=== PATIENT | male | born 1980 | race Caucasian/White ===

== ENCOUNTER 2016-07-20 09:30 | Emergency (ER) | payer OTHER ==
[2016-07-20 09:43] VITALS: BP 137/87
--- NOTE | 2016-07-20 10:00 | ER Document Report ---
ED Respiratory Problem - General Mode of Arrival: Ambulatory Information source: Patient TRAVEL OUTSIDE OF THE [place] IN LAST 30 DAYS: No - HPI Onset: Last week Duration: Worse/persistent Quality of pain: Sharp - reproducible Similar symptoms previously: No <MENDY PENG - Last Filed: 07/20/16 10:53> <SAE NGUYEN - Last Filed: 07/20/16 13:02> - General Chief Complaint: Upper Abdominal Pain Stated Complaint: RIGHT FLANK PAIN Time Seen by Provider: 07/20/16 09:56 Notes: Patient is 36 year old male that presents to the emergency department today with complaints of right sided chest wall pain. Patient reports the pain is reproducible with coughs, sneezes, and palpation of the right chest wall. Patient states his pain initially began 7 days ago and it felt like a "gas bubble". Patient does have an extensive 20 year smoking history. Patient denies any vomiting, diarrhea, cough, sputum, trauma to the area, radiation of pain to his back, or lightheadedness. (MENDY PENG) - Related Data Allergies/Adverse Reactions: No Known Allergies Allergy (Verified 07/20/16 09:34) Past Medical History - General Information source: Patient - Social History Smoking Status: Current Every Day Smoker Cigarette use (# per day): Yes Frequency of alcohol use: Rare Drug Abuse: None Lives with: Family Family History: Reviewed & Not Pertinent Patient has suicidal ideation: No Patient has homicidal ideation: No - Past Medical History Cardiac Medical History: Reports: Hx Hypercholesterolemia Surgical Hx: Negative - Immunizations Hx Diphtheria, Pertussis, Tetanus Vaccination: No <MENDY PENG - Last Filed: 07/20/16 10:53> Review of Systems - Review of Systems Constitutional: No symptoms reported EENT: No symptoms reported Cardiovascular: denies: Lightheaded Respiratory: denies: Cough, Sputum Gastrointestinal: See HPI, Abdominal pain - RUQ Genitourinary: No symptoms reported Male Genitourinary: No symptoms reported Musculoskeletal: No symptoms reported Skin: No symptoms reported Hematologic/Lymphatic: No symptoms reported Neurological/Psychological: No symptoms reported -: Yes All other systems reviewed and negative <MENDY PENG - Last Filed: 07/20/16 10:53> Physical Exam - Respiratory Respiratory status: No respiratory distress Chest status: Tender - right lower anterior rib tenderness with palpation, reproducible pain - Cardiovascular Rhythm: Regular Heart sounds: Normal auscultation Murmur: No - Abdominal Inspection: Normal Distension: No distension - Extremities General upper extremity: Normal inspection. No: Tender General lower extremity: Normal inspection. No: Tender - Neurological Neuro grossly intact: Yes Cognition: Normal Orientation: AAOx4 Speech: Normal - Psychological Associated symptoms: Normal affect, Normal mood - Skin Skin Temperature: Warm Skin Moisture: Dry Skin Color: Normal <MENDY PENG - Last Filed: 07/20/16 10:53> - Abdominal Tenderness: Nontender Organomegaly: No organomegaly <SAE NGUYEN - Last Filed: 07/20/16 13:02> - Vital signs Vitals: Temp Pulse Resp BP Pulse Ox 97.5 F 76 18 137/87 H 98 07/20/16 09:34 07/20/16 09:34 07/20/16 09:34 07/20/16 09:34 07/20/16 09:34 Course <MENDY PENG - Last Filed: 07/20/16 10:53> - Diagnostic Test Radiology reviewed: Reports reviewed <SAE NGUYEN - Last Filed: 07/20/16 13:02> - Re-evaluation Re-evalutation: 07/20/16 Patient is a 36-year-old male who comes in. He has reproducible right chest wall pain. Patient with no acute findings on checks x-ray. Vitals are stable. Unlikely pulmonary embolus or coronary artery disease as he is very low risk. Patient will be discharged home with naproxen as he feels better after being given Toradol and the emergency department. Patient will be given a note for work but states he is to be on light duty. Patient agrees with this plan. He is to return if he has any worsening or concerning symptoms. Stable for discharge. (SAE NGUYEN) - Vital Signs Vital signs: Temp Pulse Resp BP Pulse Ox 97.5 F 76 18 137/87 H 98 07/20/16 09:34 07/20/16 09:34 07/20/16 09:34 07/20/16 09:34 07/20/16 09:34 Discharge <MENDY PENG - Last Filed: 07/20/16 10:53> <SAE NGUYEN Last Filed: 07/20/16 13:02> - Discharge Clinical Impression: Chest wall pain Condition: Stable Disposition: HOME, SELF-CARE Instructions: Chest Wall Pain ([facility]) Prescriptions: Carisoprodol [Soma] 350 mg PO DAILYP PRN #10 tablet PRN Reason: Naproxen [Naprosyn 250 mg Tablet] 250 mg PO DAILY PRN #30 tablet PRN Reason: Forms: Special Work Note, Return to Work Referrals: MINH ASHFORD PA-C [Primary Care Provider] - Follow up as needed Scribe Attestation: 07/20/16 13:02 I personally performed the services described in the documentation, reviewed and edited the documentation which was dictated to the scribe in my presence, and it accurately records my words and actions. (SAE NGUYEN) Scribe Documentation - Scribe Written by Scribe:: Ike Paiz, 07/20/2016 1041 acting as scribe for :: Cee <MENDY PENG - Last Filed: 07/20/16 10:53>
[2016-07-20] MEDS ORDERED: KETOROLAC TROMETHAMINE 60 MG/2 ML SDV IM ONE (10:01)
== END 2016-07-20 11:01 | disposition home or self-care (01) ==
LOC: ER 09:30
DX: R07.89 Other chest pain (principal); R10.10 Upper abdominal pain, unspecified; F17.210 Nicotine dependence, cigarettes, uncomplicated; E78.00 Pure hypercholesterolemia, unspecified
CPT/HCPCS: 99284; 96372; 71020; J1885

== ENCOUNTER 2018-03-22 10:52 | Emergency (ER) | payer OTHER ==
[2018-03-22 11:02] VITALS: BP 138/79
[2018-03-22] MEDS ORDERED: IBUPROFEN 800 MG TABLET PO ONE (11:12)
--- NOTE | 2018-03-22 11:13 | ER Document Report ---
HPI - HPI Patient complains to provider of: finger injury Time Seen by Provider: 03/22/18 11:05 Onset: Other - 3 wks Onset/Duration: Persistent Quality of pain: Achy Pain Level: 2 Context: Patient states that he was catching a football 3 weeks ago and it jammed his finger. Patient complains of persistent pain, swelling and bruising to the involved finger. Associated Symptoms: Other - Left fourth finger injury Exacerbated by: Movement Relieved by: Denies Similar symptoms previously: No Recently seen / treated by doctor: No - ROS ROS below otherwise negative: Yes Systems Reviewed and Negative: Yes All other systems reviewed and negative - GASTROINTESTINAL Gastrointestinal: DENIES: Nausea - MUSCULOSKELETAL Musculoskeletal: REPORTS: Extremity pain - L 3rd finger, Swelling - DERM Skin Color: Ecchymosis Past Medical History - General Information source: Patient - Social History Smoking Status: Current Every Day Smoker Chew tobacco use (# tins/day): No Frequency of alcohol use: Rare Drug Abuse: None Occupation: Law enforcement Lives with: Family Family History: Reviewed & Not Pertinent Patient has suicidal ideation: No Patient has homicidal ideation: No - Past Medical History Cardiac Medical History: Reports: Hx Hypercholesterolemia Renal/ Medical History: Denies: Hx Peritoneal Dialysis Surgical Hx: Negative - Immunizations Hx Diphtheria, Pertussis, Tetanus Vaccination: No Vertical Provider Document - CONSTITUTIONAL Agree With Documented VS: Yes Exam Limitations: No Limitations General Appearance: WD/WN, No Apparent Distress - INFECTION CONTROL TRAVEL OUTSIDE OF THE [place] IN LAST 30 DAYS: No - HEENT HEENT: Atraumatic, Normocephalic - NECK Neck: Normal Inspection - RESPIRATORY Respiratory: No Respiratory Distress - CARDIOVASCULAR Pulses: Normal: Radial - MUSCULOSKELETAL/EXTREMETIES Musculoskeletal/Extremeties: MAEW, FROM, Tender - Left fourth finger tenderness about the PIP joint with edema and ecchymosis, no tendon deficit, Edema, Eccymosis - NEURO Level of Consciousness: Awake, Alert, Appropriate Motor/Sensory: No Motor Deficit - DERM Integumentary: Warm, Dry, No Rash Course - Vital Signs Vital signs: Temp Pulse Resp BP Pulse Ox 98.1 F 67 16 138/79 H 97 03/22/18 11:01 03/22/18 11:01 03/22/18 11:01 03/22/18 11:01 03/22/18 11:01 - Diagnostic Test Radiology reviewed: Pending, Image reviewed Discharge - Discharge Clinical Impression: Finger fracture, left Qualifiers: Encounter type: initial encounter Finger: ring finger Fracture type: closed Phalanx: middle Fracture alignment: nondisplaced Qualified Code(s): S62.655A - Nondisplaced fracture of middle phalanx of left ring finger, initial encounter for closed fracture Condition: Stable Disposition: HOME, SELF-CARE Instructions: Fractured Finger ([facility]), Ice & Elevation ([facility]), Splint Precautions ([facility]) Additional Instructions: Return immediately for any new or worsening symptoms Followup with your primary care provider, call tomorrow to make a followup appointment Follow-up with orthopedics for further evaluation, call today for an appointment Prescriptions: Naproxen [Naprosyn 250 Nmg Tablet] 1 tab PO BID #14 tablet Forms: Smoking Cessation Education Referrals: MINH ASHFORD PA-C [Primary Care Provider] - Follow up as needed [facility] [Provider Group] - Follow up tomorrow
--- NOTE | 2018-03-22 11:47 | RADIOLOGY REPORT (SQ) ---
EXAM DESCRIPTION: FINGER LEFT COMPLETED DATE/TIME: 03/22/2018 11:39 am REASON FOR STUDY: left 4th finger, jammed by football COMPARISON: None. NUMBER OF VIEWS: Three views. TECHNIQUE: AP, lateral, and oblique images acquired of the left fourth finger. LIMITATIONS: None. FINDINGS: MINERALIZATION: Normal. BONES: Nondisplaced fracture volar margin base of middle 4th phalanx. SOFT TISSUES: No soft tissue swelling. No foreign body. OTHER: No other significant finding. IMPRESSION: Nondisplaced fracture base of middle phalanx. TECHNICAL DOCUMENTATION: JOB ID: [id number] [employer]- All Rights Reserved Reading location - IP/workstation name: [email or web address]
== END 2018-03-22 11:52 | disposition home or self-care (01) ==
LOC: ER 10:52
DX: S62.655A Nondisplaced fracture of middle phalanx of left ring finger, initial encounter for closed fracture (principal); W21.01XA Struck by football, initial encounter; Y93.61 Activity, american tackle football; F17.200 Nicotine dependence, unspecified, uncomplicated
CPT/HCPCS: 99283

== ENCOUNTER → 2018-05-03 | Outpatient (CLI) | payer OTHER ==
--- NOTE | 2018-05-03 12:51 | RADIOLOGY REPORT (SQ) ---
EXAM DESCRIPTION: CHEST PA/LATERAL COMPLETED DATE/TIME: 05/03/2018 12:43 pm REASON FOR STUDY: CHRONIC COUGHING COMPARISON: Two-view chest 07/20/2016 EXAM PARAMETERS: NUMBER OF VIEWS: two views TECHNIQUE: Digital Frontal and Lateral radiographic views of the chest acquired. RADIATION DOSE: NA LIMITATIONS: none FINDINGS: LUNGS AND PLEURA: No opacities, masses or pneumothorax. No pleural effusion. MEDIASTINUM AND HILAR STRUCTURES: No masses or contour abnormalities. HEART AND VASCULAR STRUCTURES: Heart normal size. No evidence for failure. BONES: No acute findings. HARDWARE: None in the chest. OTHER: No other significant finding. IMPRESSION: NO SIGNIFICANT RADIOGRAPHIC FINDING IN THE CHEST. TECHNICAL DOCUMENTATION: JOB ID: [id number] [employer]- All Rights Reserved Reading location - IP/workstation name: [email or web address]
== END ==
LOC: OD 12:24
PROVIDERS: ATTEND Nurse Practitioner Family
DX: R05 Cough (principal)
CPT/HCPCS: 71046

== ENCOUNTER 2018-05-20 07:46 | Day surgery (SDC) | payer OTHER ==
[~2018-05-20 07:46] MED LIST: DIPHENHYDRAMINE HCL 50 MG/ML VIAL ONE; EPINEPHRINE INJ 1 MG/10 ML DISP.SYRIN ONE; FENTANYL CITRATE INJ/PF 100 MCG/2 ML AMPUL ONE; FLUMAZENIL INJ 0.5 MG/5 ML VIAL ONE; GLUCAGON,HUMAN RECOMB 1 MG INJ ONE; NALOXONE HCL INJ/PF 0.4 MG/1 ML SDV ONE; ONDANSETRON HCL INJ/PF 4 MG/2 ML SDV ONE
[2018-05-20] MEDS: MIDAZOLAM 2 MG/2 ML INJ ONE ×2 (08:26→08:30)
--- NOTE | 2018-05-20 08:45 | Operative Report ---
Operative Report DATE OF SURGERY: 05/20/18 Operative Report: The risks benefits and alternatives of the procedure explained to the patient in detail and informed consent is obtained.A GIF Olympus video scope was inserted into the patient's mouth and hypopharynx, the esophagus is identified intubated and insufflated, the scope was then advanced through the esophagus stomach and duodenum, retroflexion maneuver is done ,the esophagus stomach and first and second portions of the duodenum examined. PREOPERATIVE DIAGNOSIS: Long history of gastroesophageal reflux disease POSTOPERATIVE DIAGNOSIS: Gastritis status post biopsy rule out Helicobacter pylori. 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 EGD with biopsy SURGEON: KEITH SHERIDAN ANESTHESIA: Moderate Sedation - 4 mg of Versed, 75 mcg of fentanyl. Conscious sedation monitoring time 30 minutes. TISSUE REMOVED OR ALTERED: As noted above. COMPLICATIONS: None. ESTIMATED BLOOD LOSS: None. INTRAOPERATIVE FINDINGS: As noted above. PROCEDURE: Patient tolerated the procedure well. No immediate postprocedure complications are noted. Patient discharged in good condition. Discharge date 05/20/2018. Discharge diet: Regular. Discharge activity: Regular. 2-3-week follow-up to discuss findings. Patient is instructed to call the office or proceed to the emergency room should there be any further problems or questions. Wait on the pathology.
[2018-05-20 10:02] VITALS: BP 115/82
== END 2018-05-20 10:05 | disposition home or self-care (01) ==
LOC: END 07:46
PROVIDERS: ATTEND Internal Medicine Gastroenterology
DX: K29.50 Unspecified chronic gastritis without bleeding (principal); K22.70 Barrett's esophagus without dysplasia; K21.9 Gastro-esophageal reflux disease without esophagitis; F17.210 Nicotine dependence, cigarettes, uncomplicated; Z79.899 Other long term (current) drug therapy; E78.5 Hyperlipidemia, unspecified
CPT/HCPCS: 43270; 43239; 88342 ×2; 88305 ×2; J2250; J3010; J0171; J1200; J1610; J2310; J2405; J3490